=== PATIENT | female | born 1975 | race African-American/Black ===

== ENCOUNTER 2020-07-30 14:01 | Emergency (ER) | payer OTHER ==
[~2020-07-30] VITALS: Ht 165.1 cm; Wt 104.0 kg
[2020-07-30] MEDS ORDERED: KETOROLAC 30MG/ML VIAL IV STA (15:20)
[2020-07-30] MEDS ORDERED: SODIUM CHLORIDE 0.9% 1,000 ML IV ONE (15:30)
[2020-07-30] MEDS ORDERED: MORPHINE SULFATE 4 MG/ML CPJ (NOT FOR IM USE) IV STA ×2 (16:02→17:09)
[2020-07-30] MEDS ORDERED: ONDANSETRON HCL 4MG/2ML INJ IV STA ×2 (16:02→17:09)
[2020-07-30 16:11] LABS: BASOPHILS % 1.4 % (0.0-2.0); HEMATOCRIT. 30.9 % (36.0-48.0); HEMOGLOBIN. 10.1 g/dL (12.0-16.0); LYMPHOCYTES % 19.3 % (20.0-50.0); MEAN CORPUSCULAR VOLUME 82.2 fL (81.0-99.0); MEAN PLATELET VOLUME 7.5 fl (7.4-10.4); MONOCYTES % 3.8 % (2.0-8.0); NEUTROPHILS % 71.5 % (40.0-76.0); PLATELET 889 x1000/uL (130-400); RED BLOOD CELL COUNT 3.75 mill/uL (4.2-5.4); RED CELL DISTRIBUTION WIDTH 17.4 % (11.6-14.6)
[2020-07-30] MEDS ORDERED: DIPHENHYDRAMINE 50MG/ML VIAL IV ONE ×3 (16:15→19:30)
[2020-07-30 16:22] LABS: CHLORIDE 104 mEq/L (98-107)
[2020-07-30 16:24] LABS: INR 0.9; PARTIAL THROMBOPLASTIN TIME 23.9 sec (23.4-31.0); PROTHROMBIN TIME 9.8 sec (9.6-11.0)
[2020-07-30] MEDS ORDERED: MORPHINE SULFATE 4 MG/ML CPJ (NOT FOR IM USE) IV ONE (19:30)
[2020-07-30 20:00] VITALS: BP 111/79
== END 2020-07-30 21:40 | disposition short-term general hospital (02) ==
LOC: ER 14:09 → CANBEDREQ 07-31 10:06
DX: S72.051A Unspecified fracture of head of right femur, initial encounter for closed fracture (principal); M54.5 Low back pain; M25.551 Pain in right hip; R20.0 Anesthesia of skin; I49.9 Cardiac arrhythmia, unspecified; Z98.890 Other specified postprocedural states; Z88.6 Allergy status to analgesic agent; Z88.0 Allergy status to penicillin; Z88.8 Allergy status to other drugs, medicaments and biological substances; W18.39XA Other fall on same level, initial encounter; Y93.89 Activity, other specified; Y92.89 Other specified places as the place of occurrence of the external cause; Y99.8 Other external cause status
CPT/HCPCS: 36415; 71045; 72100; 72192; 73502; 73552; 80053; 81025; 82962; 85025; 85610; 85730; 86850; 86900; 86901; 93005; 96361; 96374; 96375; 96376; 99285; J1200; J1885; J2270; J2405; J7030; Z7610

== ENCOUNTER 2023-06-20 11:52 | Inpatient (IN) | payer OTHER, MEDICAID ==
[~2023-06-20] VITALS: Ht 165.1 cm; Wt 74.8 kg
[2023-06-20] MEDS: PANTOPRAZOLE 40MG DR TABLET PO SCH (00:25)
[2023-06-20] MEDS: TRAZODONE HCL 50MG TABLET PO SCH (00:25)
[2023-06-20] MEDS ORDERED: ONDANSETRON HCL 4MG/2ML INJ IV ONE (12:30)
[2023-06-20] MEDS ORDERED: LACTATED RINGERS 500 ML IV SCH (13:15)
[2023-06-20 13:29] LABS: BASOPHILS % 0.6 % (0.0-2.0); DIFFERENTIAL COMMENT 0; EOSINOPHILS % 0.7 % (0.0-5.0); HEMATOCRIT. 33.4 % (36.0-48.0); HEMOGLOBIN. 10.3 g/dL (12.0-16.0); LYMPHOCYTES % 14.4 % (20.0-50.0); MEAN CORPUSCULAR HEMOGLOBIN 24.4 pg (28.0-32.0); MEAN CORPUSCULAR HGB CONC 30.9 g/dL (31.0-37.0); MEAN CORPUSCULAR VOLUME 78.8 fL (81.0-99.0); MEAN PLATELET VOLUME 7.6 fl (7.4-10.4); MONOCYTES % 6.2 % (2.0-8.0); NEUTROPHILS % 78.1 % (40.0-76.0); PLATELET 436 x1000/uL (130-400); RED BLOOD CELL COUNT 4.24 mill/uL (4.2-5.4); RED CELL DISTRIBUTION WIDTH 16.8 % (11.6-14.6); WHITE BLOOD COUNT 9.1 x1000/uL (4.5-11.0)
[2023-06-20 13:47] LABS: HCG SCREEN NEGATIVE
[2023-06-20 13:49] LABS: ALANINE AMINOTRANSFERASE 38 IU/L (10-49); ALBUMIN 4.3 g/dL (3.2-4.8); ASPARTATE AMINOTRANSFERASE 25 IU/L (<34); BILIRUBIN TOTAL 0.3 mg/dL (0.1-1.0); CALCIUM 9.5 mg/dL (8.7-10.4); CARBON DIOXIDE 25 mEq/L (21-32); CHLORIDE 108 mEq/L (98-107); CREATININE 0.9 mg/dL (0.6-1.0); GLUCOSE 101 mg/dL (70-105); POTASSIUM 4.1 mEq/L (3.5-5.1); PROTEIN TOTAL 7.3 g/dL (6.0-8.3); SODIUM 140 mEq/L (136-145); TROPONIN I HIGH SENSITIVITY 24 ng/L (3.0-34); UREA NITROGEN BLOOD 11 mg/dL (9-23)
[2023-06-20] MEDS ORDERED: METHYLPREDNISOLONE SOD SUCC 125MG/2ML (ACT-O-VIAL) IV ONE (14:00)
[2023-06-20] MEDS ORDERED: ACETAMINOPHEN 325MG TABLET PO ONE (14:00)
[2023-06-20] MEDS ORDERED: DIPHENHYDRAMINE 50MG/ML VIAL IV ONE (14:00)
[2023-06-20 17:13] LABS: TROPONIN I HIGH SENSITIVITY 41 ng/L (3.0-34)
[2023-06-20] MEDS ORDERED: MORPHINE SULFATE 4 MG/ML CPJ (NOT FOR IM USE) IV ONE (17:30)
[2023-06-20] MEDS ORDERED: IOHEXOL-350 100 ML BOTTLE ONE (19:10)
[2023-06-20] MEDS ORDERED: DIPHENHYDRAMINE 25MG CAPSULE PO NR (22:45)
[2023-06-20] MEDS ORDERED: ONDANSETRON HCL 4MG/2ML INJ IV PRN (22:45)
[2023-06-20] MEDS ORDERED: METOPROLOL TARTRATE 50MG TABLET PO NR (23:30)
[2023-06-20 23:47] LABS: IRON 27 ug/dL (50-170); TOTAL IRON BINDING CAPACITY 265 ug/dl (250-425)
[2023-06-21] VITALS (7 sets, daily range): BP systolic 123–145; BP diastolic 70–97; PULSE 69–87; RESP 15–18; TEMP 97.9–98.3; O2SAT 100
[2023-06-21] MEDS ORDERED: NALOXONE HCL 0.4MG/ML VIAL IV PRN (00:15)
[2023-06-21] MEDS: MORPHINE SULFATE 2 MG/ML CPJ (NOT FOR IM USE) IV PRN ×4 (00:25→21:31)
[2023-06-21] MEDS: ENOXAPARIN 40MG/0.4ML SYR SUBCUT SCH ×2 (01:46→21:30)
[2023-06-21] MEDS ORDERED: DIPHENHYDRAMINE 50MG CAPSULE PO ONE (03:00)
[2023-06-21] MEDS ORDERED: DIPHENHYDRAMINE 25MG CAPSULE PO NR (03:15)
[2023-06-21] MEDS: CYCLOBENZAPRINE 10MG TABLET PO SCH ×3 (06:28→21:29)
[2023-06-21 06:56] LABS: HEMATOCRIT 32.7 % (36.0-48.0); HEMOGLOBIN 10.2 g/dL (12.0-16.0); MEAN CORPUSCULAR HEMOGLOBIN 24.8 pg (28.0-32.0); MEAN CORPUSCULAR HGB CONC 31.2 g/dL (31.0-37.0); MEAN CORPUSCULAR VOLUME 79.3 fL (81.0-99.0); PLATELET 446 x1000/uL (130-400); RED BLOOD CELL COUNT 4.13 mill/uL (4.2-5.4); RED CELL DISTRIBUTION WIDTH 17.2 % (11.6-14.6); WHITE BLOOD COUNT 8.6 x1000/uL (4.5-11.0)
[2023-06-21 07:39] LABS: CREATINE KINASE MB FRACTION 1.3 ng/mL (0.5-3.6)
[2023-06-21] MEDS ORDERED: FERROUS SULFATE 300MG/5ML UDC PO SCH ×2 (09:00→17:10)
[2023-06-21] MEDS: PANTOPRAZOLE 40MG DR TABLET PO SCH (12:03)
[2023-06-21] MEDS: HYDRALAZINE HCL 50MG TABLET PO SCH ×2 (13:20→21:30)
[2023-06-21] MEDS: DIPHENHYDRAMINE 25MG CAPSULE PO PRN ×2 (15:05→21:41)
[2023-06-21 17:24] LABS: T4 FREE 1.32 ng/dL (0.89-1.76); THYROID STIMULATING HORMONE 0.72 uIU/mL (0.55-4.78)
[2023-06-21 18:24] LABS: CALCIUM 9.1 mg/dL (8.7-10.4); CARBON DIOXIDE 26 mEq/L (21-32); CHLORIDE 104 mEq/L (98-107); CREATINE KINASE MB FRACTION 0.8 ng/mL (0.5-3.6); CREATININE 0.8 mg/dL (0.6-1.0); GLUCOSE 103 mg/dL (70-105); POTASSIUM 3.3 mEq/L (3.5-5.1); SODIUM 139 mEq/L (136-145); TROPONIN I HIGH SENSITIVITY 6 ng/L (3.0-34); UREA NITROGEN BLOOD 9 mg/dL (9-23)
[2023-06-21] MEDS ORDERED: POTASSIUM CHLORIDE 20MEQ TABLET SR PO NR (19:00)
[2023-06-21 20:52] LABS: PHOSPHORUS 4.4 mg/dL (2.5-4.9)
[2023-06-21] MEDS: TRAZODONE HCL 50MG TABLET PO SCH (21:29)
[2023-06-21 22:38] LABS: HEPATITIS B SURFACE ANTIGEN NEGATIVE (Negative); HEPATITIS C AB NON REACTIVE (Neg) (Negative)
[2023-06-22] MEDS ORDERED: FAMOTIDINE 20MG TABLET PO SCH (09:00)
== END 2023-06-21 22:35 | disposition short-term general hospital (02) | DRG 282 ==
LOC: ER 13:13 → 7EST 17:36 → EDBEDREQSVC 06-21 06:18
PROVIDERS: ADMIT Internal Medicine; ATTEND Internal Medicine
DX: I21.4 Non-ST elevation (NSTEMI) myocardial infarction (principal); D50.9 Iron deficiency anemia, unspecified; D75.839 Thrombocytosis, unspecified; F41.1 Generalized anxiety disorder; R07.89 Other chest pain; K21.9 Gastro-esophageal reflux disease without esophagitis; G47.00 Insomnia, unspecified; G89.29 Other chronic pain; Z96.641 Presence of right artificial hip joint; Z79.899 Other long term (current) drug therapy; Z86.711 Personal history of pulmonary embolism; Z86.718 Personal history of other venous thrombosis and embolism; Z88.0 Allergy status to penicillin; Z98.84 Bariatric surgery status; Z88.8 Allergy status to other drugs, medicaments and biological substances
CPT/HCPCS: 36415; 71045; 71275; 80048; 80053; 80061; 82553; 82728; 83036; 83540; 83550; 83735; 83880; 84100; 84439; 84443; 84484; 84703; 85025; 85027; 85379; 86705; 87340; 93005; 93970; 99285; C1893; J1200; J1650; J2270; J2405; J2930; Q0163; Q9967